=== PATIENT | female | born 1975 | race Caucasian/White ===

== ENCOUNTER → 2020-09-01 13:33 | Outpatient (CLI) | payer OTHER, SELFPAY ==
--- NOTE | ~2020-09-01 | XR_ITS ---
EXAMINATION: XR abdomen/kub 1V DATE: 09/01/2020 13:57 INDICATION: Calculus of kidney. TECHNIQUE: A supine view of the abdomen on 2 radiographs was obtained. COMPARISON: Abdomen radiographs 08/13/2019 FINDINGS: There are no dilated loops of bowel. There is a phlebolith in left pelvis. The kidneys are obscured by bowel. There are at least 8 stones in right kidney measuring up to 3 mm. There are at [address] st 8 stones in left kidney measuring up to 3 mm. IMPRESSION: 1. Bilateral kidney stones. Reviewed, dictated and finalized at location A. ING OPERATOR IMPRESSION: 1. Bilateral kidney stones.
== END ==
PROVIDERS: Visit Provider Internal Medicine Nephrology
DX: N20.0 Calculus of kidney (principal)
CPT/HCPCS: 74018

== ENCOUNTER → 2020-11-17 11:46 | Outpatient (CLI) | payer OTHER, SELFPAY ==
--- NOTE | ~2020-11-17 | MM_ITS ---
EXAMINATION: MM screening osorio BI w abilio HISTORY: Screening mammogram TECHNIQUE: Craniocaudal and mediolateral oblique 3-D tomosynthesis images were obtained and synthetic 2-D images were generated. CAD analysis was submitted and interpreted. COMPARISON: 12/20/2018, 08/27/2017, 03/09/2015 bilateral digital screening mammogram examinations BREAST PARENCHYMAL COMPOSITION: The breasts are heterogeneously dense, which may obscure small masses . FINDINGS: There is no evidence of suspicious mass, calcification, or architectural distortion to sugg est malignancy in either breast. There has been no suspicious interval change. IMPRESSION: 1. No mammographic evidence of malignancy. 2. Recommend routine screening mammography in one year. BI-RADS Category 1: Negative Reviewed, dictated and finalized at location A. ICE HOME CARE COORDINATOR
== END ==
PROVIDERS: Visit Provider Obstetrics & Gynecology Gynecology
DX: Z12.31 Encounter for screening mammogram for malignant neoplasm of breast (principal)
CPT/HCPCS: 77063; 77067

== ENCOUNTER → 2020-11-22 08:04 | Outpatient (CLI) | payer OTHER, SELFPAY ==
--- NOTE | ~2020-11-22 | XR_ITS ---
EXAMINATION: XR lumbar spine 2-3V EXAM DATE: 11/22/2020 08:29 INDICATION: M54.5 - Low back pain TECHNIQUE: Lumber spine frontal, lateral, lateral L5-S1 projections for interpretation. There is no prior study for comparison. FINDINGS: There is mild to moderate lumbar levoscoliosis. There is moderate lower lumbar facet arthr opathy. Multiple calcifications projecting over renal contours likely bilateral nephrolithiasis. No e ndplate erosive change. The vertebral bodies are aligned in the AP dimension. Sacrum, sacroiliac join ts, sacral arcuate lines are intact. IMPRESSION: 1. Mild to moderate lumbar levoscoliosis. 2. Moderate facet arthropathy. 3. Bilateral nephrolithiasis. Reviewed, dictated and finalized at location A. LOAN REPRESENTATIVE
== END ==
PROVIDERS: PCP Family Medicine; Visit Provider Family Medicine
DX: M54.5 Low back pain (principal); N20.0 Calculus of kidney
CPT/HCPCS: 72100

== ENCOUNTER → 2021-02-08 15:12 | Outpatient (CLI) | payer OTHER, SELFPAY ==
--- NOTE | ~2021-02-08 | XR_ITS ---
XR cervical spine 4-5V DATE: 02/08/2021 16:14 INDICATION: Cervical radiculopathy, neck pain TECHNIQUE: AP, lateral, bilateral oblique, open mouth and swimmer views COMPARISON: None FINDINGS: C1 and C2 are normally aligned and the odontoid process is intact. No fracture or dislocati on or locked facet or prevertebral soft tissue swelling. There is mild degenerative disc disease at C4-5. Remaining cervical spaces are relatively well preser ha. No significant bony encroachment upon the neural foramina is evident. IMPRESSION: Mild degenerative disc disease at C4-5 Reviewed, dictated and finalized at location A.
--- NOTE | ~2021-02-08 | XR_ITS ---
XR shoulder LT min 2V DATE: 02/08/2021 16:14 INDICATION: Left shoulder pain. Cervical radiculopathy. TECHNIQUE: 4 views COMPARISON: None FINDINGS: No fracture or dislocation, periosteal reaction or bone destruction or abnormal soft tissue calcification. IMPRESSION: Negative left shoulder Reviewed, dictated and finalized at location A. IMPRESSION: Negative left shoulder
== END ==
DX: M50.321 Other cervical disc degeneration at C4-C5 level (principal)
CPT/HCPCS: 72050; 73030

== ENCOUNTER 2021-06-24 22:16 | Emergency (ER) | payer OTHER, SELFPAY ==
--- NOTE | ~2021-06-24 | XR_ITS ---
XR chest 1V portable DATE: 06/24/2021 22:47 INDICATION: Dizziness. Nausea and vomiting. Inner ear infection. TECHNIQUE: Portable AP chest on 06/24/2021 at 2242 hours COMPARISON: None FINDINGS: Normal heart size. No hilar or mediastinal enlargement. Lungs are hyperinflated but clear o f infiltrate or consolidation. No pleural effusion or pulmonary vascular congestion or pneumothorax. IMPRESSION: No active cardiopulmonary disease Reviewed, dictated and finalized at location A.
--- NOTE | ~2021-06-24 | CT_ITS ---
EXAMINATION: CT brain wo con DATE: 06/24/2021 23:30 INDICATION: Dizziness, nausea and vomiting TECHNIQUE: Computed tomography (CT) of the head was performed without intravenous contrast. The mA wa s adjusted according to patient size. Iterative reconstruction technique was employed. Exam dose: 60 5.33 mGy-cm total exam DLP. COMPARISON: None FINDINGS: No intracranial mass lesion or hemorrhage or cerebrovascular accident. No midline shift or mass effect effect. Normal ventricular size. Normal ward-white matter differentiation. No subdural or epidural hematoma. Included paranasal sinuses and mastoid air cells are normally developed and aerated. No fracture or bone destruction of the cranial vault. IMPRESSION: No significant abnormality Reviewed, dictated and finalized at Location A. Reviewed, dictated and finalized at location A. IMPRESSION: No significant abnormality
[2021-06-24 22:16] VITALS: BP 113/71; PULSE 80; RESP 16; TEMP 35.8; O2SAT 95
--- NOTE | 2021-06-24 22:35 | ECG_ITS ---
Measurements Intervals [place] Rate: 54 P: 78 WA: 155 QRS: -12 QRSD: 102 T: -5 QT: 453 QTc: 430 Interpretive Statements SINUS BRADYCARDIA DELAYED PRECORDIAL R/S TRANSITION BORDERLINE ST-T WAVE ABNORMALITY- ANT/INF LEADS BASELINE ARTIFACT- I, II, III, AVR, AVL, AVF, V6 BORDERLINE ECG Electronically Signed On 06-25-2021 7:01:11 CDT by Moises Saeed D.O.
--- NOTE | 2021-06-24 22:36 | ED.GENADULT ---
HPI - General Adult General Chief complaint: Nausea/Vomiting/Diarrhea Stated complaint: dizzy Time Seen by Provider: 06/24/21 22:31 Source: RN notes reviewed History of Present Illness HPI narrative: Patient presents to emergency department via EMS for dizziness patient states she got up to eat this evening had Bhutanese food and Ruby was driving home when she suddenly became severely dizzy followed by nausea and vomiting. Patient states dizziness is worse whenever she opens her eyes she states that she has been having problems with ear pressure over the past 1 week she states she did have episodes of dizziness earlier today she had seen her PCP yesterday and at that time and had an abnormal ear pressure test and had been started on steroids and Sudafed which she has been taking she denies any fevers or chills, chest pain shortness of breath numbness or tingling in the extremities or any other symptoms of concerns Related Data Home Medications Medication Instructions Recorded Confirmed escitalopram oxalate 5 mg tablet 5 mg PO DAILY 06/28/20 06/23/21 hydrochlorothiazide 25 mg tablet 25 mg PO DAILY 06/28/20 06/23/21 norgestimate-ethinyl estradiol 1 tablet PO DAILY 06/28/20 06/23/21 0.18 mg/0.215mg/0.25mg-35 mcg(28)tablet cholecalciferol (vitamin D3) 25 25 mcg PO DAILY 11/19/20 06/23/21 mcg (1,000 unit) capsule potassium citrate 10 mEq (1,080 10 meq PO DAILY tablet 11/19/20 06/23/21 mg) tablet,extended release Allergies Allergy/AdvReac Type Severity Reaction Status Date / Time No Known Allergies Allergy Unknown Verified 06/23/21 10:17 Review of Systems Review of Systems: Gen.: Denies fevers or chills Eyes: Denies eye pain or visual change ENT: Reports nasal congestion and ear pain Respiratory: Denies shortness of breath or cough CV: Denies chest pain or palpitations GI: Denies abdominal pain diarrhea reports nausea vomiting Musculoskeletal: Denies back pain or muscle pain Neuro: See HPI Skin: Denies rash Except as documented, all other systems reviewed and negative PMF Past Medical History Medical History (Updated 06/25/21 @ 02:27 by Lai Wing DO) Patient denies significant medical history Family History Family History Other Diabetes mellitus Social History Social History (Updated 06/24/21 @ 22:38 by Lai Wing DO) Smoking status: Never smoker Alcohol intake: current Exam Narrative: APPEARANCE: No acute distress, nontoxic, resting in bed EYES: EOMI, PERRL HEENT: Normocephalic, atraumatic, OMM TMs clear bilaterally RESPIRATORY: No respiratory distress Clear to auscultation bilaterally with no rhonchi wheezing or rales. CARDIOVASCULAR: Regular rate and rhythm without murmurs rubs or gallops. ABDOMINAL: Soft, nontender, nondistended, no rebound or guarding MUSCULOSKELETAl: Moves all extremities. No clubbing, cyanosis or edema. NEURO: Awake and alert x3, following commands speech normal no focal deficits, increased dizziness with opening eyes SKIN:: Warm, dry. No rashes lesions or abrasions PSYCHIATRIC: Normal affect/mood, Course Course Emergency Course: Patient states she is feeling much better at this time dizziness is resolved able to get up and ambulate with no difficulty Discussed with patient results of workup and diagnosis. Discussed need for follow-up with primary care, proper use of medication, and reasons to return to the emergency department. Patient understands and agrees to current treatment plan Vital Signs Vital signs: Vital Signs Temperature 96.4 F L 06/24/21 22:16 Pulse Rate 80 06/24/21 22:16 Respiratory Rate 16 06/24/21 22:16 Blood Pressure 113/71 06/24/21 22:16 Pulse Oximetry 95 06/24/21 22:16 Temperature 97.8 F 06/24/21 22:54 Pulse Rate 63 06/25/21 01:24 Respiratory Rate 19 06/25/21 01:24 Blood Pressure 96/58 L 06/25/21 01:24 Pulse Oximetry 99 06/25/21 01
[2021-06-24 22:54] VITALS: BP 103/60; PULSE 52; RESP 18; TEMP 36.6; O2SAT 88
[2021-06-24] MEDS: SODIUM CHLORIDE 0.9% IV 1,000 ML 999 ML IV CONT (23:12)
[2021-06-24] MEDS: PROMETHAZINE HCL 25 MG/ML AMPUL 12.5 MG IV PUSH (23:13)
[2021-06-24 23:41] LABS: Basophils Absolute Auto 0.1 K/mm3 (0.0-0.1); Basophils Percent Auto 0.5 % (0.2-1.2); Eosinophils Absolute Auto 0.1 K/mm3 (0-0.3); Eosinophils Percent Auto 0.5 % (0-4.4); Hematocrit 38.7 % (37.0-47.0); Hemoglobin 13.3 g/dL (12.0-15.0); Immature Granulocyte Absolute 0.05 K/mm3 (0.00-0.031); Immature Granulocyte Percent A 0.5 % (0-0.5); Lymphocytes Absolute Auto 1.79 K/mm3 (0.9-3.2); Lymphocytes Percent Auto 18.9 % (18.3-44.2); Mean Corpuscular HGB Conc 34.4 g/dl (32-36); Mean Corpuscular Hemoglobin 31.2 pg (26-34); Mean Corpuscular Volume 90.8 fl (80-100); Mean Platelet Volume 9.4 fl (7.4-10.4); Monocytes Absolute Auto 0.5 K/mm3 (0.1-0.6); Monocytes Percent Auto 5.4 % (2.6-8.5); Neutrophils Percent Auto 74.2 % (45.5-73.1); Platelet Count Result 236 k/mm3 (150-375); Red Blood Count 4.26 M/mm3 (4.2-5.4); White Blood Count 9.5 K/mm3 (4.5-10.0)
[2021-06-24 23:55] LABS: Alanine Aminotransferase 15 U/L (4-35); Albumin Level 4.1 g/dL (3.5-5.1); Alkaline Phosphatase 48 U/L (38-126); Anion Gap 9 mmol/L (8-16); Aspartate Amino Transferase 24 U/L (14-36); Bilirubin,Total 0.4 mg/dL (0.2-1.3); Blood Urea Nitrogen 18 mg/dL (7-17); Calcium 8.8 mg/dL (8.4-10.2); Carbon Dioxide 26 mmol/L (22-30); Chloride 103 mmol/L (98-107); Estimated CRCL calculation 93 ml/min; Estimated Glomerular Filt Rate > 60; Glucose 126 mg/dL (65-110); Potassium 2.9 mmol/L (3.4-5.0); Sodium 138 mmol/L (137-145)
[2021-06-24 23:59] LABS: INR 0.9; Prothrombin Time 11.9 Seconds (11.1-14.7)
[2021-06-25 00:01] LABS: Partial Thromboplastin Time < 20.0 SECONDS (22.3-36.8)
[2021-06-25 00:07] LABS: Troponin I < 0.012 ng/mL (0.000-0.034)
[2021-06-25] MEDS: MECLIZINE HCL 25 MG TABLET PO (00:17)
[2021-06-25 00:24] VITALS: BP 103/58; PULSE 65; RESP 16; O2SAT 100
[2021-06-25 01:24] VITALS: BP 96/58; PULSE 63; RESP 19; O2SAT 99
[2021-06-25 02:19] LABS: Add Urine Microscopic? YES; Appearance Urine Clear (Clear); Bacteria Urine Trace /hpf; Bilirubin Urine Negative (Negative); Blood Urine Negative (Negative); Color Urine Yellow (Yellow); Glucose Urine UA Negative (Negative); Ketones Urine Negative (Negative); Leukocyte Esterase Ur 1+ LEU/UL (Negative); Mucus Urine Rare /lpf; Nitrate Urine Negative (Negative); Protein Urine Negative (Negative); Specific Grav Ur 1.011 (1.001-1.035); Squamous Epithelial Cell Urine Moderate /hpf (Few); Urobilinogen Urine Negative mg/dL (<2.0); WBC Urine 0-3 /hpf
[2021-06-25 02:21] LABS: Troponin I < 0.012 ng/mL (0.000-0.034)
[2021-06-25 02:27] VITALS: BP 106/69; PULSE 71; RESP 17; O2SAT 99
[2021-06-25] MEDS: POTASSIUM CHLORIDE 20 MEQ TABLET 40 MEQ PO (02:34)
== END 2021-06-25 02:42 | disposition home or self-care (01) ==
PROVIDERS: Emergency Provider Emergency Medicine; PCP Family Medicine
DX: R42 Dizziness and giddiness (principal); R00.1 Bradycardia, unspecified; R94.31 Abnormal electrocardiogram [ECG] [EKG]
CPT/HCPCS: 36415; 70450; 71045; 80053; 81001; 84484; 85025; 85610; 85730; 93005; 96361; 96374; 99284; A9270; J2550; J7030

== ENCOUNTER 2021-07-25 12:47 | Outpatient (CLI) | payer OTHER, SELFPAY | END 2021-07-25 12:48 | disposition home or self-care (01) | LOC: ANHAUDIO 12:48 | PROVIDERS: PCP Family Medicine; Visit Provider Otolaryngology | DX: H83.09 Labyrinthitis, unspecified ear (principal); H81.20 Vestibular neuronitis, unspecified ear; H81.09 Meniere's disease, unspecified ear; H90.A31 Mixed conductive and sensorineural hearing loss, unilateral, right ear with restricted hearing on the contralateral side; H90.A12 Conductive hearing loss, unilateral, left ear with restricted hearing on the contralateral side | CPT/HCPCS: 92557; 92567 ==

== ENCOUNTER → 2021-08-03 14:01 | Outpatient (CLI) | payer OTHER, SELFPAY ==
--- NOTE | ~2021-08-03 | XR_ITS ---
EXAMINATION: XR abdomen/kub 1V DATE: 08/03/2021 14:32 INDICATION: Calculus of kidney. TECHNIQUE: A supine view of the abdomen on 2 radiographs was obtained. COMPARISON: Abdomen radiographs 09/01/2020 FINDINGS: There are no dilated loops of bowel. There is a large volume of stool in the colon. The kid neys are obscured by bowel. There are approximately 6 stones in right kidney measuring up to 3 mm. Th ere are least 3 stones in left kidney measuring up to 4 mm. There is a phlebolith in left pelvis. IMPRESSION: 1. Bilateral kidney stones. Reviewed, dictated and finalized at location A. IMPRESSION: 1. Bilateral kidney stones.
== END ==
PROVIDERS: Visit Provider Internal Medicine Nephrology
DX: N20.0 Calculus of kidney (principal)
CPT/HCPCS: 74018

== ENCOUNTER 2021-08-22 12:50 | Outpatient (CLI) | payer OTHER, SELFPAY ==
--- NOTE | ~2021-08-22 | MR_ITS ---
EXAMINATION: MR IAC wo/w con DATE: 08/22/2021 14:22 INDICATION: Tinnitus, bilateral. TECHNIQUE: Magnetic resonance imaging (MRI) of the brain, brainstem, and internal auditory canals was performed without and with 13 mm MultiHance intravenous contrast. Sequences included sagittal and ax ial T1-weighted FSE, axial diffusion-weighted FS EPI, axial T2*-weighted GRE, axial T2-weighted FLAIR Propeller, axial T2-weighted Propeller, small wuagr-ua-cznf coronal FIESTA, small nozkf-id-ercd medardo nal T1-weighted FSE, and small vxiwp-qs-ervf axial T1-weighted SPGR. Postcontrast sequences included axial T1-weighted FSE, small emcok-rw-vpai coronal T1-weighted FSE, and small vkmkq-ze-gvzw axial T1- weighted SPGR. Apparent diffusion coefficient (ADC) maps were created. COMPARISON: Head CT 06/24/2021 FINDINGS: There are scattered areas of nonspecific increased T2-weighted signal intensity in the cere bral white matter, which is within normal limits for the patient's age. There is no intracranial hemo rrhage, acute infarction, or abnormal intracranial mass lesion. The ventricles are normal in size. Th e internal auditory canals and inner and middle ears are normal. The mastoid air cells are normal. Th e orbits are normal. There is mucosal thickening in the paranasal sinuses. IMPRESSION: 1. Normal aging brain. Reviewed, dictated and finalized at location A. IMPRESSION: 1. Normal aging brain.
[2021-08-22 13:36] LABS: Estimated Glomerular Filt Rate > 60
== END 2021-08-22 12:51 | disposition home or self-care (01) ==
PROVIDERS: PCP Family Medicine; Visit Provider Otolaryngology
DX: H93.13 Tinnitus, bilateral (principal); H81.09 Meniere's disease, unspecified ear; H81.20 Vestibular neuronitis, unspecified ear; H83.09 Labyrinthitis, unspecified ear; H90.3 Sensorineural hearing loss, bilateral
CPT/HCPCS: 70553; A9577

== ENCOUNTER → 2022-03-09 14:17 | Outpatient (CLI) | payer OTHER, SELFPAY ==
--- NOTE | ~2022-03-09 | MM_ITS ---
EXAMINATION: MM screening osorio BI w abilio HISTORY: Screening TECHNIQUE: Craniocaudal and mediolateral oblique 3-D tomosynthesis images were obtained and synthetic 2-D images were generated. CAD analysis was submitted and interpreted. COMPARISON: Comparison to multiple prior studies sequentially, with oldest reviewed study dated 03/09. BREAST PARENCHYMAL COMPOSITION: The breasts are heterogeneously dense, which may obscure small masses . FINDINGS: There is no evidence of suspicious mass, calcification, or architectural distortion to sugg est malignancy in either breast. There has been no suspicious interval change. IMPRESSION: 1. No mammographic evidence of malignancy. 2. Recommend routine screening mammography in one year. BI-RADS Category 1: Negative Reviewed, dictated and finalized at location A.
== END ==
PROVIDERS: PCP Family Medicine; Visit Provider Obstetrics & Gynecology Gynecology
DX: Z12.31 Encounter for screening mammogram for malignant neoplasm of breast (principal)
CPT/HCPCS: 77063; 77067

== ENCOUNTER → 2022-09-13 08:02 | Outpatient (CLI) | payer OTHER, SELFPAY ==
--- NOTE | ~2022-09-13 | XR_ITS ---
XR abdomen/kub 1V DATE: 09/13/2022 08:14 INDICATION: Kidney calculus follow-up TECHNIQUE: AP projection, 2 views COMPARISON: 08/03/2021 KUB FINDINGS: Approximately 5.4 x 9 mm calcification overlying right kidney. Additional much smaller milo t calcifications are noted overlying both renal silhouette suggesting bilateral nephrolithiasis. Noncontrast CT abdomen pelvis would be more sensitive and accurate for detection of urinary tract sto cheri. The psoas shadows are intact. No visceromegaly is noted. Mildly prominent amount of fecal material in the colon. No bowel obstruction. Mild to moderate rotatory levoscoliosis of the lumbar spine. Normal heart size. The lung bases are clear. IMPRESSION: Probable bilateral nephrolithiasis Reviewed, dictated and finalized at Location A. Reviewed, dictated and finalized at location A. OL CHILDCARE ATTENDANT
== END ==
PROVIDERS: PCP Internal Medicine Nephrology; Visit Provider Internal Medicine Nephrology
DX: N20.0 Calculus of kidney (principal)
CPT/HCPCS: 74018

== ENCOUNTER → 2023-01-25 07:58 | Outpatient (CLI) | payer OTHER, SELFPAY ==
--- NOTE | ~2023-01-25 | XR_ITS ---
Supine and upright views of the abdomen Clinical history: Renal stone COMPARISON: 09/13/2022 Findings: Bowel gas pattern is nonspecific. No evidence for obstruction or free air. Numerous small b ilateral renal stones are present. Osseous structures are intact. Impression: Numerous small bilateral renal stones. Largest stone measures approximately 3 mm. Reviewed, dictated and finalized at location M. Impression: Numerous small bilateral renal stones. Largest stone measures approximately 3 m m.
== END ==
PROVIDERS: PCP Family Medicine; Visit Provider Internal Medicine Nephrology
DX: N20.0 Calculus of kidney (principal)
CPT/HCPCS: 74018

== ENCOUNTER 2023-01-30 11:50 | Outpatient (CLI) | payer OTHER, SELFPAY | END 2023-01-30 11:51 | disposition home or self-care (01) | PROVIDERS: PCP Family Medicine; Visit Provider Internal Medicine Nephrology | DX: R82.81 Pyuria (principal) | CPT/HCPCS: 87086 ==

== ENCOUNTER → 2023-02-07 09:14 | Outpatient (CLI) | payer OTHER, SELFPAY ==
--- NOTE | ~2023-02-07 | CT_ITS ---
EXAMINATION: CT abdomen pelvis wo con DATE: 02/07/2023 09:34 INDICATION: Pelvic pain. History of stones. TECHNIQUE: Computed tomography (CT) of the abdomen and pelvis was performed without intravenous contr ast. The dose-length product was 325.64 mGy-cm. Automated exposure control and iterative reconstructi on technique were employed. COMPARISON: None. FINDINGS: Lung bases are unremarkable. No significant pleural or pericardial effusion. Heart size nor mal. No significant vascular abnormality. There are multiple nonobstructing bilateral renal stones. N o definite ureteral stones or hydronephrosis. No abnormal pelvic masses or fluid collections. The liver, spleen, pancreas, adrenal glands are unremarkable. No free air or free fluid. There is lev oscoliosis of the lumbar spine. No acute bone or joint abnormality. Nonobstructive bowel pattern. No free air or free fluid. IMPRESSION: 1. Nonobstructing bilateral nephrolithiasis. Reviewed, dictated and finalized at location B.
== END ==
PROVIDERS: PCP Family Medicine; Visit Provider Internal Medicine Nephrology
DX: R10.2 Pelvic and perineal pain (principal); N20.0 Calculus of kidney
CPT/HCPCS: 74176

== ENCOUNTER → 2023-06-12 12:54 | Outpatient (CLI) | payer OTHER, SELFPAY ==
--- NOTE | ~2023-06-12 | MM_ITS ---
EXAMINATION: MM screening osorio BI w abilio HISTORY: Screening TECHNIQUE: Craniocaudal and mediolateral oblique 3-D tomosynthesis images were obtained and synthetic 2-D images were generated. CAD analysis was submitted and interpreted. COMPARISON: Comparison to multiple prior studies sequentially, with oldest reviewed study dated 03/09. BREAST PARENCHYMAL COMPOSITION: There are scattered areas of fibroglandular density. FINDINGS: There is no evidence of suspicious mass, calcification, or architectural distortion to sugg est malignancy in either breast. There has been no suspicious interval change. IMPRESSION: 1. No mammographic evidence of malignancy. 2. Recommend routine screening mammography in one year. BI-RADS Category 1: Negative Reviewed, dictated and finalized at location A.
== END ==
PROVIDERS: PCP Obstetrics & Gynecology Gynecology; Visit Provider Obstetrics & Gynecology Gynecology
DX: Z12.31 Encounter for screening mammogram for malignant neoplasm of breast (principal)
CPT/HCPCS: 77063; 77067

== ENCOUNTER 2024-06-25 12:42 | Outpatient (CLI) | payer OTHER, SELFPAY ==
--- NOTE | ~2024-06-25 | XR_ITS ---
EXAMINATION: XR abdomen/kub 1V DATE: 06/25/2024 13:10 INDICATION: Nephrolithiasis. TECHNIQUE: A supine view of the abdomen on 2 radiographs was obtained. COMPARISON: Abdomen radiographs 01/25/2023, CT abdomen and pelvis 02/07/2023 FINDINGS: There are no dilated loops of bowel. There are phleboliths in left pelvis. There is bilater al medullary nephrocalcinosis. There are greater than 10 stones in right kidney measuring up to 3 mm. There are greater than 10 stones in left kidney measuring up to 3 mm. IMPRESSION: 1. Bilateral kidney stones. Reviewed, dictated and finalized at location A. IMPRESSION: 1. Bilateral kidney stones.
--- NOTE | ~2024-06-25 | MM_ITS ---
EXAMINATION: MM screening osorio BI w abilio HISTORY: Screening TECHNIQUE: Craniocaudal and mediolateral oblique 3-D tomosynthesis images were obtained and synthetic 2-D images were generated. CAD analysis was submitted and interpreted. COMPARISON: Comparison to multiple prior studies sequentially, with oldest reviewed study dated 07/31. BREAST PARENCHYMAL COMPOSITION: Dense: The breasts are heterogeneously dense, which may obscure small masses FINDINGS: There is no evidence of suspicious mass, calcification, or architectural distortion to sugg est malignancy in either breast. There has been no suspicious interval change. IMPRESSION: 1. No mammographic evidence of malignancy. 2. Recommend routine screening mammography in one year. BI-RADS Category 1: Negative Reviewed, dictated and finalized at location B.
== END 2024-06-25 12:43 | disposition home or self-care (01) ==
PROVIDERS: PCP Family Medicine; Visit Provider Obstetrics & Gynecology Gynecology
DX: Z12.31 Encounter for screening mammogram for malignant neoplasm of breast (principal); N20.0 Calculus of kidney
CPT/HCPCS: 74018; 77063; 77067

== ENCOUNTER 2024-08-23 09:51 | Emergency (ER) | payer OTHER, SELFPAY ==
[2024-08-23 10:10] VITALS: BP 114/87; PULSE 80; RESP 16; TEMP 36.6; O2SAT 98
--- NOTE | 2024-08-26 21:54 | ED_ITS ---
HPI - Ear Problem General Chief complaint: Ear Stated complaint: Ear Pain Time Seen by Provider: 08/23/24 10:13 Source: patient, RN notes reviewed and old records reviewed Mode of arrival: ambulatory Limitations: no limitations History of Present Illness HPI Narrative: 49 year female to Express Care for complaint of left ear pain. Patient states she was seen by her primary care provider on the given Augmentin and a steroid. Prior to that patient was seen on the in the emergency department for dizziness, vomiting. patient states that at that time she was diagnosed with a left ear infection And was also given meclizine. Patient reports improvement for a few days and has recently started declining. States she is preparing to travel out of country for a wedding and is concerned flying with unresolved ear infection. Patient able to tolerate fluids by mouth. Patient resting comfortably in exam room in no acute distress. Respirations even and nonlabored. Related Data Home Medications Medication Instructions Recorded Confirmed cholecalciferol (vitamin D3) 25 25 mcg PO DAILY 11/19/20 08/27/24 mcg (1,000 unit) capsule bupropion HCl 150 mg tablet,12 hr 150 mg PO DAILY 01/30/23 08/27/24 sustained-release (Wellbutrin SR) mecobalamin (vitamin B12) 1,000 1,000 mcg PO DAILY 08/07/23 08/27/24 mcg chewable tablet levonorgestrel-ethinyl estradiol 1 tablet PO DAILY 05/22/24 08/27/24 0.1 mg-20 mcg tablet (Aviane) Allergies Allergy/AdvReac Type Severity Reaction Status Date / Time No Known Allergies Allergy Unknown Verified 08/27/24 08:08 Review of Systems Review of Systems: All systems reviewed & are unremarkable except as noted in HPI and below Constitutional: Constitutional: Reports no additional constitutional complaints Eyes: Eyes: Reports no additional eye complaints ENT: Reports as per HPI and Reports otalgia ( Left) Cardiovascular: Cardiovascular: Reports no additional cardiovascular complaints, Denies chest pain and Denies dyspnea Respiratory: Respiratory: Reports no additional respiratory complaints, Denies cough and Denies dyspnea Musculoskeletal: Musculoskeletal: Reports no additional musculoskeletal complaints Neurologic: Reports system reviewed and no additional complaints, except as documented Psychiatric: Psychiatric: Reports no additional psychiatric complaints PMFSH Past Medical History Medical History Patient denies significant medical history Family History Family History Other Diabetes mellitus Social History Social History Smoking status: Never smoker Alcohol intake: current Lack of Transportation: No Current Housing: I Have Housing Concerned About Future Housing: No Difficulty Paying Gas/Electric Bills: No Difficulty Paying for Meds: No Currently Unemployed: No Education: Bachelor's Degree Living arrangements: with family Gender identity (if verbalized by the patient): Female Comments At the time of my signature, I reviewed and agree with the nursing past medical, surgical, social, and family history. There is no relevant family history pertinent to the patient complaint. Exam Const: General: cooperative, healthy appearing, comfortable, no acute distress, alert and well nourished Nutritional Appearance: well nourished Orientation/consciousness: patient oriented x3 Limitations: no limitations HENMT: Head: normal to inspection Ears: external ears normal and TM abnormal erythematous on the left and with fluid behind the TM on the left Face/Nose/Sinus: Normal external nose present, Normal nares present, normal facial exam, No erythema and No edema Face and sinus: normal facial exam, no erythema and no edema Mouth: Yes Normal oral and palatal mucosa present Eyes: General: appearance normal, both eyes and all related structures Neck: Neck: normal visual inspection, full ROM and no meningeal signs Lymphatic: no lymphadenopathy noted and no lymphedema noted Chest: Chest palpation & inspection: normal inspection of the chest Resp: Effort & Inspection: normal respiratory effort and able to speak in com plete sentences Auscultation: clear to auscultation bilaterally Cardio: Jugular venous distension: no JVD Rate: regular rate Rhythm: regular rhythm Back/Spine/Pelvis: Cervical Spine: cervical ROM normal Skin: General skin exam: normal color, no rashes or lesions noted and turgor normal Neuro: General: patient oriented x3, gait normal, moves all extremities and no meningeal signs Speech: normal speech Gait exam (Neuro): Normal gait present Extrem: General: normal to inspection, full ROM and capillary refill normal Psych: Appearance: grossly normal and well kempt Course Course Emergency Course: Some parts of this dictation were generated by voice recognition software and may contain typographical and/or grammatical inaccuracies. Level of Care: Express Care Visit Vital Signs Vital signs: Vital Signs Temperature 36.6 C 08/23/24 10:10 Pulse Rate 80 08/23/24 10:10 Respiratory Rate 16 08/23/24 10:10 Blood Pressure 114/87 08/23/24 10:10 Pulse Oximetry 98 08/23/24 10:10 Temperature 36.6 C 08/23/24 10:10 Pulse Rate 80 08/23/24 10:10 Respiratory Rate 16 08/23/24 10:10 Blood Pressure 114/87 08/23/24 10:10 Pulse Oximetry 98 08/23/24 10:10 reviewed Medical Decision Making MDM Narrative Medical decision making narrative: 49 year female to Express Care for complaint of left ear pain. Patient states she was seen by her primary care provider on the given Augmentin and a steroid. Prior to that patient was seen on the in the emergency department for dizziness, vomiting. patient states that at that time she was diagnosed with a left ear infection And was also given meclizine. Patient reports improvement for a few days and has recently started declining. States she is preparing to travel out of country for a wedding and is concerned flying with unresolved ear infection. Patient able to tolerate fluids by mouth. Patient resting comfortably in exam room in no acute distress. Respirations even and nonlabored. on exam, left TM erythematous with serous fluid. EAC mildly tender exam. Exam otherwise unremarkable. Patient is sitting comfortably in exam room nontoxic in appearance. Patient appropriate for outpatient treatment and follow-up. Discharge instructions reviewed with patient, as well as provided in writing per nursing staff. The instructions also include specific and strict return/GO TO THE ER as well as f/u information. All questions have been answered, and the patient deny any further questions with discharge and discharge plan. Some parts of this dictation were generated by voice recognition software and may contain typographical and/or grammatical inaccuracies. Differential Diagnosis Differential Diagnosis: Otitis media, otitis externa, ruptured tympanic membrane, upper respiratory infection, sinusitis Vital Signs Vital Signs: Vital Signs Temperature 36.6 C 08/23/24 10:10 Pulse Rate 80 08/23/24 10:10 Respiratory Rate 16 08/23/24 10:10 Blood Pressure 114/87 08/23/24 10:10 Pulse Oximetry 98 08/23/24 10:10 Temperature 36.6 C 08/23/24 10:10 Pulse Rate 80 08/23/24 10:10 Respiratory Rate 16 08/23/24 10:10 Blood Pressure 114/87 08/23/24 10:10 Pulse Oximetry 98 08/23/24 10:10 Discharge Plan Discharge Clinical Impression: Left otitis media Patient Disposition: Home, Self-Care Condition: Stable Instructions: How to Use Ear Drops (ED), Ear Infection (ED) Additional Instructions: -Alternate Tylenol and Motrin per package directions for fever or pain. -Antihistamine medication such as Benadryl at night and Zyrtec/Claritin/Jenni during the day can help improve symptoms. -Use Flonase twice a day for 5 days then daily to help reduce the inflammation and dry up your sinuses. -Be sure to drink plenty of water with these medications at least 8 ounces with every dose and it is important to drink 8 to 10 glasses of water per day. Water is a natural decongestant -Using a vaporizer or humidifier at night will also help thin secretions and help with coughing up phlegm. -Follow up with primary care provider in 2-3 days if condition is not improving; or seek ER visit if you have trouble breathing, cannot drink enough fluids, have muffled voice, difficulty opening your mouth, or severe swelling. Prescriptions: New ciprofloxacin-dexamethasone 0.3-0.1 % drops,suspension 4 drp LEFT EAR Q12H 7 Days Qty: 7.5 0RF No Action cholecalciferol (vitamin D3) 25 mcg (1,000 unit) capsule 25 mcg PO DAILY bupropion HCl [Wellbutrin SR] 150 mg tablet sustained-release 12 hr 150 mg PO DAILY mecobalamin (vitamin B12) 1,000 mcg tablet,chewable 1,000 mcg PO DAILY levonorgestrel-ethinyl estrad [Aviane] 0.1-20 mg-mcg tablet 1 tablet PO DAILY cefuroxime axetil 500 mg tablet 500 mg PO Q12H Qty: 20 0RF methylprednisolone 4 mg tablets,dose pack See Rx Instructions PO PER PKG DIR Qty: 21 0RF Rx Instructions: PO PER PKG DIR hydrochlorothiazide 25 mg tablet 25 mg PO DAILY Qty: 30 11RF potassium citrate 10 mEq (1,080 mg) tablet extended release 10 meq PO DAILY Qty: 60 6RF Rx Instructions: Take 2 Tablets PO BID with meals Follow-up/Referrals: Juanita Singh DO [Primary Care Provider] -
== END 2024-08-23 10:49 | disposition home or self-care (01) ==
PROVIDERS: Emergency Provider Nurse Practitioner Family; PCP Family Medicine
DX: H66.92 Otitis media, unspecified, left ear (principal)
CPT/HCPCS: 99213; G0463

== ENCOUNTER 2025-07-01 11:00 | Outpatient (CLI) | payer OTHER, SELFPAY ==
--- NOTE | ~2025-07-01 | XR_ITS ---
XR abdomen/kub 1V 07/01/2025 11:14 INDICATION: Nephrolithiasis TECHNIQUE: KUB COMPARISON: Comparison to multiple prior studies sequentially, with oldest reviewed study dated 08/03/2021. FINDINGS: Bowel gas pattern is normal. There is no evidence of free air, mass, organomegaly, ascites or obstruction. There are small bilateral renal stones, obscured by bowel content. There are pelvic phleboliths. The bones appear intact. There is levoscoliosis of the lumbar spine. IMPRESSION: 1: No significant change to bilateral nephrolithiasis. Reviewed, dictated and finalized at location O.
== END 2025-07-01 11:01 | disposition home or self-care (01) ==
PROVIDERS: PCP Family Medicine; Visit Provider Internal Medicine Nephrology
DX: N20.0 Calculus of kidney (principal)
CPT/HCPCS: 74018

== ENCOUNTER 2025-07-23 13:45 | Outpatient (CLI) | payer OTHER, SELFPAY ==
--- NOTE | ~2025-07-23 | MM_ITS ---
EXAMINATION: MM screening osorio BI w abilio HISTORY: Screening TECHNIQUE: Craniocaudal and mediolateral oblique 3-D tomosynthesis images were obtained and synthetic 2-D images were generated. CAD analysis was submitted and interpreted. COMPARISON: 06/12/2023 BREAST PARENCHYMAL COMPOSITION: The breasts are heterogeneously dense, which may obscure small masses. FINDINGS: There is no evidence of suspicious mass, calcification, or architectural distortion to suggest malignancy. There has been no suspicious interval change. IMPRESSION: 1. No mammographic evidence of malignancy. Recommend routine screening mammography in one year. BI-RADS Category 2: Benign finding(s) Reviewed, dictated and finalized at location Q. IMPRESSION: 1. No mammographic evidence of malignancy. Recommend routine screening mammogra phy in one year. BI-RADS Category 2: Benign finding(s)
--- OUTSIDE RECORDS SUMMARY | 2025-07-23 16:31 | XMS_ITS | Clinical Summary ---
Author Organization [facility] Address [address] [place] [id number] Phone Care Team Providers Care Wire Chief Name Role Phone Juanita Singh MD Primary Care Provider [phone] Allergies No known active allergies Medications escitalopram (LEXAPRO) 10 MG tablet Take 10 mg by mouth 1 (one) time each day 0 07/25/2019 Active Cholecalciferol (Vitamin D3) 25 MCG (1000 UT) capsule Take by mouth Active cyanocobalamin (VITAMIN B-12) 1000 MCG/ML injection 11/25/2020 Active hydroCHLOROthia zide (HYDRODIURIL) 25 MG tablet Take 1 tablet (25 mg total) by mouth 1 (one) time each day 30 tablet 11 12/13/2021 Active Aviane 0.1-20 MG-MCG per tablet Take 1 tablet by mouth 1 (one) time each day 07/15/2022 Active potassium citrate (UROCIT-K) 10 MEQ (1080 MG) CR tablet TAKE 2 TABLETS BY MOUTH TWICE DAILY WITH MEALS 60 tablet 09/27/2022 Active Active Problems Problem Noted Date Diagnosed Date Calculus of kidney 11/05/2017 Immunizations Immunization Administration Dates Next Due Influenza TIV (IM) 08/02/2022(Deferred: Patient Refused) Family History Medical History Relation Comments Hypertensive disorder Father Kidney disease Mother Kidney stone Mother Relation Status Comments Father Mother Social History Tobacco Use Types Packs/Day Years Used Date Smoking Tobacco: Never Smokeless Tobacco: Never Alcohol Use Standard Drinks/Week Comments Yes 0 (1 standard drink = 0.6 oz pur e alcohol) Alcoholic Drinks/day: social Comments Unknown Sex and Gender Information Value Date Recorded Sex Assigned at Not on file Legal Sex Female 8:47 AM [facility] Gender Identity Not on file Sexual Orientation Not on file Last Filed Vital Signs Vital Sign Reading Time Taken Comments Blood Pressure 102/60 08/02/2022 1:32 PM CDT Pulse 72 08/02/2022 1:32 PM CDT Temperature 36.7 C (98 F) 08/02/2022 1:32 PM CDT Respiratory Rate - - Oxygen Saturation - - Inhaled Oxygen Concentration - - Weight 65.3 kg (144 lb) 08/02/2022 1:32 PM CDT Height 175.3 cm (5' 9) 08/02/2022 1:32 PM CDT Body Mass Index 21.27 08/02/2022 1:32 PM CDT Plan of Treatment Health Maintenance Due Date Last Done Comments Influenza Vaccine (#1) 2025 Insurance [employer] Care Teams Wire Chief Relationship Specialty Start Date End Date Juanita Singh MD PCP - General Family Medicine 02/01/22
--- OUTSIDE RECORDS SUMMARY | 2025-07-23 16:31 | XMS_ITS | Clinical Summary ---
Author Organization [facility] Address [address] [place] [address] Phone Care Team Providers Care In File Operator Name Role Phone Juanita Singh DO Primary Care Provider [phone] Allergies No known active allergies Medications Levonorgestrel-E thinyl Estrad (Aviane) 0.1-20 MG-MCG Tablet Take 1 Tablet by mouth daily. Active buPROPion SR (WELLBUTRIN SR) 150 MG TABLET SR 12 HR Take 150 mg by mouth every morning. Active cefUROXime (CEFTIN) 500 MG Tablet Take 500 mg by mouth every 12 hours. Active hydroCHLOROthiaz anastacio 25 MG Tablet Take 25 mg by mouth daily. Active meclizine (ANTIVERT) 25 MG Tablet Take 25 mg by mouth 3 times daily as needed. Active ondansetron (ZOFRAN-ODT) 4 MG TABLET DISPERSIBLE Take 4 mg by mouth every 8 hours as needed for Nausea - 1st line. Active potassium citrate (UROCIT K) 10 MEQ (1080 MG) Tablet Controlled Release Take 10 mEq by mouth daily. Active B Complex Vitamins (VITAMIN B COMPLEX PO) Take by mouth daily. Active VITAMIN D PO Take by mouth daily. Active Cetirizine HCl (ZYRTEC PO) Take by mouth daily. Active Family History Medical History Relation Name Comments No Known Problems Father Other-comment Mother VERTIGO Relation Name Status Comments Father Alive Mother Alive Social History Tobacco Use Types Packs/Day Years Used Date Smoking Tobacco: Never Smokeless Tobacco: Never Tobacco Cessation:Counseling Given: Not Answered Alcohol Use Standard Drinks/Week Comments Yes 0 (1 standard drink = 0.6 oz pur e alcohol) weekends Sexually Active Control Partners Comments Yes Oral Contraceptive Male Comments Unknown Sex and Gender Information Value Date Recorded Sex Assigned at Not on file Legal Sex Female 8:49 AM [employer] Gender Identity Not on file Sexual Orientation Not on file Last Filed Vital Signs Vital Sign Reading Time Taken Comments Blood Pressure 130/85 09/30/2024 11:15 AM [employer] Pulse 56 09/30/2024 11:15 AM [employer] Temperature 36.6 C (97.9 F) 09/30/2024 11:15 AM [employer] Respiratory Rate 16 09/30/2024 11:15 AM [employer] Oxygen Saturation 99% 09/30/2024 11:15 AM [employer] Inhaled Oxygen Concentration - - Weight 66.3 kg (146 lb 3.2 oz) 09/30/2024 7:09 A M [employer] Height 177.8 cm (5' 10) 09/30/2024 7:09 AM [employer] Body Mass Index 20.98 09/30/2024 7:09 AM [employer] Plan of Treatment Health Maintenance Due Date Last Done Comments Hepatitis C Virus (HCV) Screening 1975 Mammogram 1975 TdaP Immunization 1975 Hepatitis B Immunization (1 of 3 - 19+ 3-dose series) 1994 Pap Smear 1996 Cervical Cancer Screening (CCS) 2005 HPV/Cotest 2005 Cologuard 2020 Colonoscopy 2020 Colorectal Cancer Screening 2020 Immunochemical Fecal Occult Blood 2020 Influenza Immunization (#1) 2025 SARS-COV-2 Immunization (3 - 2024- season) 2025 06/13/2021, 05/18/2021 Pneumococcal Immunization (5 0+ years) (1 of 1 - PCV) 2025 Zoster Immunization (1 of 2) 2025 Respiratory Syncytial Virus (RSV) Immunization (Adult) (1 - 1-dose 75+ series) 2050 Human Papillomavirus (HPV) Immunization Aged Out No longer eligible b ased on patient's age to complete this topic Meningococcal Immunization (ACWY) Aged Out No longer eligible b ased on patient's age to complete this topic Rotavirus Immunization Aged Out No lo nger eligible based on patient's age to complete this topic Medical Devices Implanted Type Area Chief Procurement Officer Device Identifier Shelf Expiration Date Model / Serial / Lot Tube Ventilation 1.14mm Dahl Bevel Grommet Ear [employer] - [id number] Implanted:Qty: 1 on 09/30/2024 by Jacques Berry MD at [facility] IMPLANT Left: Ear [employer] 01/06/2034 [id number] / [id number] / [id number] Insurance [employer] Care Teams In File Operator Relationship Specialty Start Date End Date Juanita Singh DO [address] [place] [address] PCP - General Family Medicine 09/23/24
--- OUTSIDE RECORDS SUMMARY | 2025-07-23 16:31 | XMS_ITS | Encounter Summary ---
Author Organization [facility] Address [address] [place] [address] Phone Care Team Providers Care Senior Integration Architect Name Role Phone Juanita Singh DO Primary Care Provider [phone] Encounter Details Date Type Department Care Team (Latest Contact Info) Description 09/16/2024 [facility] [address] [place] [address] Jacques Berry MD [address] [facility] [address] [place], [place] [id number] Dysfunction of left eustachian tube (Primary Dx); Pre-op testing Social History Tobacco Use Types Packs/Day Years Used Date Smoking Tobacco: Never Smokeless Tobacco: Never Alcohol Use Standard Drinks/Week Comments Yes 0 (1 standard drink = 0.6 oz pur e alcohol) occasional Comments Unknown Sex and Gender Information Value Date Recorded Sex Assigned at Not on file Legal Sex Female 8:49 AM [employer]HA[employer] EMISSIONS INSPECTOR Gender Identity Not on file Sexual Orientation Not on file documented as of this encounter Plan of Treatment Not on file documented as of this encounter Results * POTASSIUM (K) (09/23/2024 1:48 PM [employer]HA[employer] EMISSIONS INSPECTOR) POTASSIUM 3.9 3.5 - 5.1 mmol/L 09/23/2024 2:29 PM EXHA[employer] EMISSIONS INSPECTOR [facility] Comment: Specimen is hemolyzed. In vitro hemolysis could affect results. Clinical correlation advised. Blood Venipuncture / Unknown 09/23/2024 1:48 PM EXHAUST EMISSIONS INSPECTOR 09/23/2024 2:12 PM EXHA[employer] EMISSIONS INSPECTOR us Jacques Berry MD CHEMISTRY ORDERABLES Final Re sult [facility] [address] [place] [address] documented in this encounter Visit Diagnoses Diagnosis Dysfunction of left eustachian tube- Primary Dysfunction of Eustachian tube Pre-op testing Preoperative examination, unspecified documented in this encounter Care Teams Senior Integration Architect Relationship Specialty Start Date End Date Juanita Singh DO [address] [place] [address] PCP - General Family Medicine 09/23/24 documented as of this encounter
--- OUTSIDE RECORDS SUMMARY | 2025-07-23 16:31 | XMS_ITS | Clinical Summary ---
Author Organization [facility] Address [address] [place] [address] Care Team Providers Care Expense Clerk Name Role Phone Juanita Singh DO Primary Care Provider [phone] Allergies No known active allergies Medications azithromycin (ZITHROMAX) 500 mg tablet Take 1 tablet (500 mg total) by mouth daily. Active diazePAM (VALIUM) 2 MG tabletIndications:V ertigo,Left non-suppurative otitis media Take 1 tablet (2 mg total) by mouth every 6 (six) hours as needed for Anxiety. 60 tablet 4 Active ondansetron (ZOFRAN-ODT) 4 MG disintegrating tablet Take 1 tablet (4 mg total) by mouth every 8 (eight) hours as needed for Nausea. 20 tablet 4 Active Social History Tobacco Use Types Packs/Day Years Used Date Smoking Tobacco: Never Assessed Comments Unknown Sex and Gender Information Value Date Recorded Sex Assigned at Not on file Legal Sex Female 6:29 PM CDT Gender Identity Not on file Sexual Orientation Not on file Last Filed Vital Signs Vital Sign Reading Time Taken Comments Blood Pressure 118/85 08/14/2024 5:23 PM CDT Pulse 71 08/14/2024 5:23 PM CDT Temperature 36.2 C (97.2 F) 08/14/2024 5:23 PM CDT Respiratory Rate 20 08/14/2024 5:23 PM CDT Oxygen Saturation 100% 08/14/2024 5:23 PM CDT Inhaled Oxygen Concentration - - Weight 65.8 kg (145 lb) 08/14/2024 2:53 PM CDT Height 177.8 cm (5' 10) 08/14/2024 2:53 PM CDT Body Mass Index 20.81 08/14/2024 2:53 PM CDT Plan of Treatment Health Maintenance Due Date Last Done Comments Cervical Cancer Screening Pa p Smear (Age 30 to 64) Every 3 Years 1975 Colorectal Cancer Screening Colonoscopy (10 Years) 1975 Annual Physical 1978 Hepatitis C 1993 DTaP, Tdap and Td Vaccines ( 1 - Tdap) 1994 Hepatitis B Vaccines (1 of 3 - 19+ 3-dose series) 1994 Cervical Cancer Screening Pa p with HPV Testing (Age 30 to 64) Every 5 Years 2005 Cervical Cancer Screening wi th HPV 2005 Mammogram Screening 2015 COVID-19 Vaccine (3 - 2024-2 6 season) 2025 06/13/2021, 05/18/2021 Pneumococcal Vaccine: 50+ Years (1 of 1 - PCV) 2025 Zoster Vaccines (1 of 2) 2025 Meningococcal B Vaccine Aged Out No l onger eligible based on patient's age to complete this topic Meningococcal Vaccine Aged Out No akanksha stephani eligible based on patient's age to complete this topic RSV Immunizations Under 20 Months Aged Out No longer eligible b ased on patient's age to complete this topic Insurance [facility] Care Teams Expense Clerk Relationship Specialty Start Date End Date Juanita Singh DO [address] [place] [address] PCP - General FAMILY PRACTICE 08/14/24
--- OUTSIDE RECORDS SUMMARY | 2025-07-23 16:31 | XMS_ITS | Clinical Summary ---
Author Organization [facility] Address [facility] [place] [address] Care Team Providers Care Mat Inspector Name Role Phone No, Physician Primary Care Provider [phone] Allergies No known active allergies Medications cholecalciferol (VITAMIN D-3) 1,000 unit capsule Take by mouth Active Falmina, 28, 0.1-20 mg-mcg per tablet Take 1 tablet by mouth daily 1 Active buPROPion XL (WELLBUTRIN XL) 150 mg 24 hr tablet Take 1 tablet (150 mg total) by mouth daily 3 Active potassium citrate ER (UROCIT-K) 10 mEq (1,080 mg) CR tablet Take 1 tablet (10 mEq total) by mouth 2 (two) times a day 180 tablet 3 5 12/24/19 26 Active hydroCHLOROthia zide (HYDRODIURIL) 25 mg tablet Take 1 tablet (25 mg total) by mouth daily 30 tablet 11 5 04/02/20 26 Active cyanocobalamin, vitamin B-12, 1,000 mcg tablet extended release Take by mouth 06/25/20 25 Discontinue d(No longer taking - Do not display on AVS) cevlioy-wlih-qd zge-bthq-kbdwdj 100 mg-150 mg- 50 mg-150 mg capsule Take by mouth 06/25/20 25 Discontinue d(No longer taking - Do not display on AVS) Active Problems Problem Noted Date Diagnosed Date Calculus of kidney 11/05/2017 Encounters Date Type Department Care Team Description 07/09/2025 Telephone [facility] at [address] [place] [address] Lee Rockwell MD 07/08/2025 Orders Only [facility] Nephrology at [address] [place] [phone] ProviderLamar MD 06/25/2025 1:00 PM CDT Office Visit [facility] at [address] [place] [address] Lee Rockwell MD Nephrolithiasis (Primary Dx) from Last 3 Months Surgical History Surgery Date Site/Laterality Comments FLUORO GUIDED INJECTION SHOULDER LEFT 03/18/2021 Lef t TYMPANOSTOMY TUBE PLACEMENT 09/28/2024 - 10/28/2024 Social History Tobacco Use Types Packs/Day Years Used Date Smoking Tobacco: Never Smokeless Tobacco: Never Tobacco Cessation:Counseling Given: Not Answered AUDIT-C Answer Date Recorded Q1: How often do you have a drink containing alc ohol? 2-4 times a month 06/11/2024 Average Number of Drinks Not on file 024 Frequency of Binge Drinking Not on file 05/29 Comments Unknown Sex and Gender Information Value Date Recorded Sex Assigned at Not on file Legal Sex Female 8:07 AM CDT Gender Identity Not on file Sexual Orientation Not on file Obstetrics History Last Filed Vital Signs Vital Sign Reading Time Taken Comments Blood Pressure 121/81 06/25/2025 1:05 PM CDT Pulse 73 06/25/2025 1:05 PM CDT Temperature 36.1 C (97 F) 06/25/2025 1:05 PM CDT Respiratory Rate 16 03/18/2021 2:55 PM CDT Oxygen Saturation 98% 03/18/2021 2:55 PM CDT Inhaled Oxygen Concentration - - Weight 66.3 kg (146 lb 3.2 oz) 06/25/2025 1:05 P M CDT Height 177.8 cm (5' 10) 06/25/2025 1:05 PM CDT Body Mass Index 20.98 06/25/2025 1:05 PM CDT Plan of Treatment Health Maintenance Due Date Last Done Comments Breast Cancer Screening-Mammogram 1975 Cervical Cancer Screening 1975 Colon Cancer Screening-Colonoscopy 1975 Depression Screening 1975 Hepatitis C Screening 1975 DTaP/Tdap/Td Vaccine (1 - Tdap) 1986 Hepatitis B Screening 1993 Regular Well Visit/Exam 18-64 1993 Covid-19 Vaccine (3 - 2024-2 6 season) 2025 06/13/2021, 05/18/2021 Influenza Vaccine (#1) 2025 Zoster Vaccine (1 of 2) 2025 Pneumococcal vaccine <65 Aged Out No longer eligible based on patient's age to complete this topic Procedures Procedure Name Priority Date/Time Associated Diagnosis Comments XR KUB Schedule Routine, Read Routine (OP Routine) 07/01/2025 4:05 PM CDT STONERISK(R) DIAGNOSTIC PROFILE Routine 06/20/2025 7:47 AM CDT Nephrolithiasis from Last 3 Months Results * XR Kub (07/01/2025 4:05 PM CDT) Anatomical Region Laterality Modality Body, Abdomen N/A Radiographic Lissa ging us Historical Provider IMZack XR PROCEDURES Final R esult * (ABNORMAL) STONERISK(R) DIAGNOSTIC PROFILE (06/20/2025 7:47 AM CDT) Volume, ur 3.30 >2.00 L/day [facility], Comment:See Note 1 pH, ur 7.0 5.5 - 7.0 [facility], Calcium, ur 203 <250.0 mg/day [facility], Comment:See Note 1 Oxalate ur 25 <45 mg/day [facility], Comment:See Note 1 Uric acid, ur 686 <700 mg/day [facility], Comment:See Note 1 Citrate ur 254(L) >320 mg/day [facility], Comment:See Note 1 Sodium ur 132 <200 mEq/day [facility], Comment:See Note 1 Sulfate ur 17 <30 mmol/day [facility], Comment:See Note 1 Phosphorus ur 1,046 <1,100 mg/day [facility], Comment:See Note 1 Magnesium ur 71 >60.0 mg/day [facility], Comment:See Note 1 Ammonium ur 28 14 - 62 mEq/day [facility], Comment:See Note 1 Potassium ur 64 19 - 135 mEq/day [facility], Comment:See Note 1 Creatinine ur 1,308 600 - 1,800 mg/day [facility], Comment:See Note 1 Calcium oxalate 0.73 <2.00 [facility], Brushite crystals, ur 2.39(H) <2.00 [facility], Sodium urate crystals, ur 0.78 <2.00 [facility], STRUVITE 2.76 <75.00 [facility], Uric acid 0.11 <2.00 [facility], 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 It has not been cleared or approved by the FDA. This assay has been validated pursuant to the CLIA regulations and is used for clinical purposes. Urine 06/20/2025 7:47 AM CDT 06/22/2025 10:51 PM CDT Narrative [facility] - 07/04/2025 8:17 PM CDT FASTING:NO FASTING: NO us Lee Rockwell MD LAB BLOOD ORDERABLES Final Resu lt [facility], [address] [place] [address] from Last 3 Months [facility] Care Teams Mat Inspector Relationship Specialty Start Date End Date No, Physician PCP - General 02/18/21
== END 2025-07-23 13:46 | disposition home or self-care (01) ==
PROVIDERS: PCP Family Medicine; Visit Provider Obstetrics & Gynecology Gynecology
DX: Z12.31 Encounter for screening mammogram for malignant neoplasm of breast (principal)
CPT/HCPCS: 77063; 77067